=== PATIENT | male | born 1960 | race Caucasian/White ===

== ENCOUNTER → 2016-11-09 | Outpatient (CLI) | payer MEDICARE | LOC: MW.LAB 10:53 | PROVIDERS: ATTEND Nurse Practitioner Family | DX: R73.01 Impaired fasting glucose (principal) | CPT/HCPCS: 36415; 83036 ==

== ENCOUNTER → 2016-11-21 | Outpatient (CLI) | payer MEDICARE ==
--- NOTE | 2016-11-23 12:02 | CR ---
EXAM DATE: 11/21/16 PATIENT'S AGE: 56 Patient: KATHY AMADOR Facility: [place], [place] Site . Site : [id number] Study: XRay Pelvis Right [id number] 3:34:32 PM Ordering Physician: Jacki Aranda Final Report: HISTORY: Right hip pain. Findings: AP pelvis demonstrates post surgical changes of the L5-S1. Surgical clips overlying the sacrum. The pelvic ring and sacral ala are intact. There is mild acetabular spurring within both hips. No subchondral abnormality, fracture or dislocation seen. Impression: Mild degenerative changes of the hips. Dictated by Effie Pascual MD @ Nov 23 2016 12:30AM (Electronic Signature) Report Signed by Proxy and Original Signed Document filed in the Medical Record. MTDD
== END ==
LOC: MW.CHORTHO 07:47
PROVIDERS: ATTEND Orthopaedic Surgery
DX: M25.551 Pain in right hip (principal); M25.851 Other specified joint disorders, right hip; M16.11 Unilateral primary osteoarthritis, right hip
CPT/HCPCS: 20610; 72170; 72170-26; 99203; J1040

== ENCOUNTER → 2016-12-06 | Outpatient (CLI) | payer MEDICARE ==
[~2016-12-06] MED LIST: Gadobenate Dimeglumine 529 MG/ML 20 ML SDV IV ONE
--- NOTE | 2016-12-07 09:35 | MR ---
EXAMINATION: MRI of thoracic spine with and without contrast HISTORY: Paraparesis COMPARISON: MRI lumbar spine dated 03/31/2016 TECHNIQUE: Multiplanar and multisequence images obtained through the thoracic spine before and follo wing the administration of 12 mL of MultiHance. FINDINGS: The thoracic spinal alignment is normal. The vertebral body heights and disc spaces appear well-maintained. There is no abnormal bone marrow signal or enhancement. The abnormal spinal cord s ignal. There is no significant disc bulge, spinal canal stenosis, or neural foraminal stenosis iden tified. The paravertebral soft tissues appear normal. IMPRESSION: Unremarkable MRI of thoracic spine.
--- NOTE | 2016-12-07 11:12 | MR ---
EXAMINATION: MRI of the brain with and without contrast. TECHNIQUE: Multiplanar and multisequence images obtained of the brain before and following the admin istration of 12 mL of Gadavist. HISTORY: Paraparesis. FINDINGS: Cerebral hemispheres and the deep nuclei are without hemorrhage, mass, edema, gliosis, enhancement o r atrophy. Tiny subcortical and periventricular white matter FLAIR signal intensities are noted, no nspecific. No extraaxial collections or hemorrhage. Ventricular system is of normal size and configuration without hydrocephalus. No evidence for globe flattening, small ventricles or partially empty sella to suggest pseudotumor cerebri. Brainstem and cerebellum are without hemorrhage, mass, edema, gliosis, enhancement or atrophy. The carotid basilar artery flow voids are intact. The otomastoid airspaces are clear. No internal dennis tory canal or cerebellopontine angle masses or enhancement. Moderate mucosal thickening within the maxillary sinuses and ethmoid air cells. The globes, optic n erves, orbital apices, optic chiasm, optic tracts, and visual cortices are unremarkable. The pituit jennifer and sella turcica are unremarkable. No meningeal enhancement. The craniocervical junction is u nremarkable. No siderosis. The calvarium is intact. IMPRESSION: 1. No acute intracranial findings. 2. Small scattered periventricular and subcortical FLAIR signal abnormalities, nonspecific, however likely represent small vessel ischemic changes. 3. Moderate paranasal sinus disease.
== END ==
LOC: MW.MRI 14:00
PROVIDERS: ATTEND Psychiatry & Neurology Neurology
DX: G82.20 Paraplegia, unspecified (principal); J34.9 Unspecified disorder of nose and nasal sinuses
CPT/HCPCS: 70553; 70553-26; 72157; 72157-26; A9577

== ENCOUNTER 2017-04-16 17:56 | Emergency (ER) | payer MEDICARE ==
[2017-04-16 18:03] VITALS: BP 102/58
[2017-04-16] MEDS ORDERED: diphenhydrAMINE 50 MG Cap PO ONE (18:05)
--- NOTE | 2017-04-16 18:06 | EDM.PDOC ---
ED HPI GENERAL MEDICAL PROBLEM - General Chief Complaint: Allergic Reaction Stated Complaint: PT HAS ALLERGIC REACTION TO MEDICATION Time Seen by Provider: 04/16/17 18:02 - History of Present Illness INITIAL COMMENTS - FREE TEXT/NARRATIVE: HISTORY AND PHYSICAL: History of present illness: Patient 36-year-old white male presents with a concern possible adverse drug reaction related to Bactrim he denies shortness of breath he states he feels like his lips are swollen although this is not apparent on upon arrival he denies any other concern he was put on this for prostate infection. Review of systems: As per history of present illness and below otherwise all systems reviewed and negative. Past medical history: As per history of present illness and as reviewed below otherwise noncontributory. Surgical history: As per history of present illness and as reviewed below otherwise noncontributory. Social history: No reported history of drug or alcohol abuse. Family history: As per history of present illness and as reviewed below otherwise noncontributory. Physical exam: HEENT: Atraumatic, normocephalic, pupils reactive, negative for conjunctival pallor or scleral icterus, mucous membranes moist, throat clear, neck supple, nontender, trachea midline. Lungs: Clear to auscultation, breath sounds equal bilaterally, chest nontender. Heart: S1S2, regular, negative for clicks, rubs, or JVD. Abdomen: Soft, nondistended, nontender. Negative for masses or hepatosplenomegaly. Negative for costovertebral tenderness. Pelvis: Stable nontender. Genitourinary: Deferred. Rectal: Deferred. Extremities: Atraumatic, negative for cords or calf pain. Neurovascular unremarkable. Neuro: Awake, alert, oriented. Cranial nerves II through XII unremarkable. Cerebellum unremarkable. Motor and sensory unremarkable throughout. Exam nonfocal. Diagnostics: None Therapeutics: None Impression: #1 history of prostatitis #2 possible adverse drug reaction Definitive disposition and diagnosis as appropriate pending reevaluation and review of above. Lower Abdominal Pain Score (Numeric/FACES): 8 - Related Data Allergies Allergy/AdvReac Type Severity Reaction Status Date / Time celecoxib [From Celebrex] Allergy Difficulty Verified 04/16/17 17:59 Breathing midazolam HCl [From Versed] Allergy Difficulty Verified 04/16/17 17:59 Breathing NSAIDS (Non-Steroidal Allergy Difficulty Verified 04/16/17 17:59 Anti-Inflamma Breathing Penicillins Allergy Rash Verified 04/16/17 17:59 Home Meds: Home Meds Acetaminophen/HYDROcodone [Lortab 500-10 MG] 1 - 2 tab PO Q6H PRN 11/23/13 [ History] Metoprolol Succinate [Toprol XL 100mg] 100 mg PO DAILY 11/23/13 [History] Morphine [AVINza] 60 mg PO 11/23/13 [History] atorvaSTATin [Lipitor] 40 mg PO BEDTIME 11/23/13 [History] Aspirin [Ecotrin] 325 mg PO DAILY 12/16/13 [History] Clopidogrel [Plavix] 75 mg PO 12/16/13 [History] Lisinopril [Zestril] 10 mg PO DAILY 12/16/13 [History] Morphine Sulfate [Morphine Sulfate Cr] 60 mg PO BID 12/16/13 [History] Nitroglycerin [Nitrostat] 0.4 mg SL PRN 12/16/13 [History] Social & Family History - Tobacco Use Years of Tobacco use: 35 - Recreational Drug Use Recreational Drug Use: No ED ROS ALLERGIC REACTION - Review of Systems Review Of Systems: ROS reveals no pertinent complaints other than HPI. ED EXAM GENERAL NO PERIP PULSE - Physical Exam Exam: See Below (See dictation) Course - Vital Signs Last Recorded V/S: Last Vital Signs Temp 36.6 C 04/16/17 18:00 Pulse 100 04/16/17 18:00 Resp 16 04/16/17 18:00 BP 102/58 L 04/16/17 18:00 Pulse Ox 99 04/16/17 18:00 Departure - Departure Time of Disposition: 18:05 Disposition: Home, Self-Care 01 Condition: Good Clinical Impression: Adverse drug reaction, History of prostatitis - Discharge Information Referrals: PCP,None [Primary Care Provider] - Additional Instructions: The following information is given to patients seen in the emergency department who are being discharged to home. This information is to outline your options for follow-up care. We provide all patients seen in our emergency department with a follow-up referral. The need for follow-up, as well as the timing and circumstances, are variable depending upon the specifics of your emergency department visit. If you don't have a primary care physician on staff, we will provide you with a referral. We always advise you to contact your personal physician following an emergency department visit to inform them of the circumstance of the visit and for follow-up with them and/or the need for any referrals to a consulting specialist. The emergency department will also refer you to a specialist when appropriate. This referral assures that you have the opportunity for followup care with a specialist. All of these measure are taken in an effort to provide you with optimal care, which includes your followup. Under all circumstances we always encourage you to contact your private physician who remains a resource for coordinating your care. When calling for followup care, please make the office aware that this follow-up is from your recent emergency room visit. If for any reason you are refused follow-up, please contact the [facility] emergency department at and asked to speak to the emergency department charge nurse. Stop Bactrim and Cipro Medrol Benadryl as prescribed follow-up primary medical doctor 1-2 days return as needed as discussed
== END 2017-04-16 18:15 | disposition home or self-care (01) ==
LOC: MW.ED 17:56
DX: R10.30 Lower abdominal pain, unspecified (principal); T37.0X5A Adverse effect of sulfonamides, initial encounter; Z88.8 Allergy status to other drugs, medicaments and biological substances; Z79.82 Long term (current) use of aspirin; Z79.899 Other long term (current) drug therapy; Z88.0 Allergy status to penicillin
CPT/HCPCS: 99283; A9270; 99282

== ENCOUNTER 2019-04-09 08:42 | Emergency (ER) | payer MEDICARE ==
--- NOTE | 2019-04-09 09:40 | EDM.PDOC ---
ED HPI GENERAL MEDICAL PROBLEM - General Chief Complaint: Headache Stated Complaint: HEADACHE Time Seen by Provider: 04/09/19 09:31 Source of Information: Reports: Patient History Limitations: Reports: No Limitations - History of Present Illness INITIAL COMMENTS - FREE TEXT/NARRATIVE: History of present illness: []Patient started having headaches just underneath the skin over his left parietal area 10 days ago has had 4 episodes. He states they last 1-3 hours and usually occur at night after taking his Plavix. He did start taking magnesium 10 days ago when they began however he has been off the magnesium for a week and continues to have the headaches. Patient denies any visual changes, numbness , tingling, ringing in his ears, nausea or vomiting. She states his pain is currently gone now but he is concerned because he is a fentanyl patch for chronic sciatica from a pain management clinic that has been decreased from 100 g to 25 g. Review of systems: As per history of present illness and below otherwise all systems reviewed and negative. Past medical history: As per history of present illness and as reviewed below otherwise noncontributory. Surgical history: As per history of present illness and as reviewed below otherwise noncontributory. Social history: No reported history of drug or alcohol abuse. Family history: As per history of present illness and as reviewed below otherwise noncontributory. Physical exam: General: Well developed, well nourished in NAD HEENT: Atraumatic, normocephalic, pupils reactive, negative for conjunctival pallor or scleral icterus, mucous membranes moist, throat clear, neck supple, nontender, trachea midline. Lungs: Clear to auscultation, breath sounds equal bilaterally, chest nontender. Heart: S1S2, regular, negative for clicks, rubs, or JVD. Abdomen: NABS, Soft, nondistended, nontender. Negative for masses or hepatosplenomegaly. Negative for costovertebral tenderness. Pelvis: Stable nontender. Genitourinary: Deferred. Rectal: Deferred. Extremities: Atraumatic, negative for cords or calf pain. Neurovascular unremarkable. Neuro: Awake, alert, oriented. Cranial nerves II through XII unremarkable. Cerebellum unremarkable. Motor and sensory unremarkable throughout. Exam nonfocal. Skin:warm and dry Diagnostics: CT head negative Therapeutics: None ED Course: Stable Impression: reCurrent headaches Prescriptions: None Plan: Take meds as directed, follow up with your primary care physician, return to ER if symptoms worsen or change. Definitive disposition and diagnosis as appropriate pending reevaluation and review of above. headache Pain Score (Numeric/FACES): 5 - Related Data Allergies Allergy/AdvReac Type Severity Reaction Status Date / Time celecoxib [From Celebrex] Allergy Difficulty Verified 04/09/19 08:57 Breathing midazolam HCl [From Versed] Allergy Difficulty Verified 04/09/19 08:57 Breathing NSAIDS (Non-Steroidal Allergy Difficulty Verified 04/09/19 08:57 Anti-Inflamma Breathing Penicillins Allergy Rash Verified 04/09/19 08:57 Home Meds: Home Meds Clopidogrel [Plavix] 75 mg PO DAILY 12/16/13 [History] Nitroglycerin [Nitrostat] 0.4 mg SL ASDIRECTED PRN 12/16/13 [History] Hydrocodone/Acetaminophen [Hydrocodon-Acetaminophn 10-325] 2 tab PO TID [History] fentaNYL [Fentanyl] 1 patch TOP ASDIRECTED 04/09/19 [History] traMADol [Ultram] 25 mg PO BID 04/09/19 [History] Past Medical History HEENT History: Reports: None Cardiovascular History: Reports: CAD, [place] Respiratory History: Reports: None Gastrointestinal History: Reports: None Genitourinary History: Reports: None Musculoskeletal History: Reports: None Neurological History: Reports: None Psychiatric History: Reports: None Endocrine/Metabolic History: Reports: None Hematologic History: Reports: None Immunologic History: Reports: None Oncologic (Cancer) History: Reports: None Dermatologic History: Reports: None - Past Surgical History HEENT Surgical History: Reports: None Cardiovascular Surgical History: Reports: Coronary Artery Bypass, Coronary Artery Stent Respiratory Surgical History: Reports: None GI Surgical History: Reports: Hernia, Abdominal, Hernia Repair/Other Male Surgical History: Reports: None Endocrine Surgical History: Reports: None Neurological Surgical History: Reports: None Musculoskeletal Surgical History: Reports: Other (See Below) Other Musculoskeletal Surgeries/Procedures:: back surgery Oncologic Surgical History: Reports: None Dermatological Surgical History: Reports: None Social & Family History - Family History Family Medical History: Noncontributory - Tobacco Use Smoking Status *Q: Current Every Day Smoker Years of Tobacco use: 35 Packs/Tins Daily: 0.5 - Caffeine Use Caffeine Use: Reports: Coffee, Soda - Recreational Drug Use Recreational Drug Use: No ED ROS GENERAL - Review of Systems Review Of Systems: See Below - Physical Exam Exam: See Below Course - Vital Signs Last Recorded V/S: Last Vital Signs Temp 97.3 F 04/09/19 08:55 Pulse 74 04/09/19 08:55 Resp 18 04/09/19 08:55 BP 137/63 04/09/19 08:55 Pulse Ox 97 04/09/19 08:55 Departure - Departure Time of Disposition: 10:48 Disposition: Home, Self-Care 01 Condition: Good Clinical Impression: Recurrent headache - Discharge Information *PRESCRIPTION DRUG MONITORING PROGRAM REVIEWED*: No *COPY OF PRESCRIPTION DRUG MONITORING REPORT IN PATIENT DEON: No Referrals: PCP,Unknown [Primary Care Provider] - Forms: ED Department Discharge Additional Instructions: The following information is given to patients seen in the emergency department who are being discharged to home. This information is to outline your options for follow-up care. We provide all patients seen in our emergency department with a follow-up referral. The need for follow-up, as well as the timing and circumstances, are variable depending upon the specifics of your emergency department visit. If you don't have a primary care physician on staff, we will provide you with a referral. We always advise you to contact your personal physician following an emergency department visit to inform them of the circumstance of the visit and for follow-up with them and/or the need for any referrals to a consulting specialist. The emergency department will also refer you to a specialist when appropriate. This referral assures that you have the opportunity for follow-up care with a specialist. All of these measure are taken in an effort to provide you with optimal care, which includes your follow-up. Under all circumstances we always encourage you to contact your private physician who remains a resource for coordinating your care. When calling for follow-up care, please make the office aware that this follow-up is from your recent emergency room visit. If for any reason you are refused follow-up, please contact the [facility] Emergency Department at and asked to speak to the emergency department charge nurse. , follow up with your primary care physician, return to ER if symptoms worsen or change. [facility] [address] [place] [id number]
--- NOTE | 2019-04-09 10:46 | CT ---
INDICATION: Starting get headaches at night after taking Plavix. TECHNIQUE: Scanning of the head was performed without IV contrast material. Coronal and sagittal reconstructions were obtained. COMPARISON: None. FINDINGS: No acute hemorrhage, parenchymal attenuation abnormality, or mass effect is demonstrated. Differentiation between the cedillo matter and white matter is preserved. The ventricles and other subarachnoid spaces are within normal limits. No calvarial abnormality is evident. Membrane thickening along the floor of the maxillary sinuses and possible fluid in the sinus is demonstrated. Membrane thickening along the floor left maxillary sinus is noted. Membrane thickening and possible fluid is present in multiple ethmoid air cells bilaterally. The frontal sinuses are aplastic and the sphenoid sinuses are markedly hypoplastic. Mild membrane thickening in both sphenoid sinuses is noted. The mastoids are clear. IMPRESSION: 1. Negative noncontrast head CT. 2. Paranasal sinus disease, as above. Please note that all CT scans at this facility use dose modulation, iterative reconstruction, and/or weight-based dosing when appropriate to reduce radiation dose to as low as reasonably achievable. Dictated by Brandon Corey MD @ Apr 09 2019 10:34AM Signed by Dr. Brandon Corey @ Apr 09 2019 10:44AM
[2019-04-09 10:54] VITALS: BP 92/47; PULSE 64
== END 2019-04-09 10:55 | disposition home or self-care (01) ==
LOC: MW.ED 08:42
DX: R51 Headache (principal); I25.10 Atherosclerotic heart disease of native coronary artery without angina pectoris; I25.2 Old myocardial infarction; F17.210 Nicotine dependence, cigarettes, uncomplicated; Z79.02 Long term (current) use of antithrombotics/antiplatelets; Z79.899 Other long term (current) drug therapy; Z88.0 Allergy status to penicillin; Z88.8 Allergy status to other drugs, medicaments and biological substances
CPT/HCPCS: 70450; 70450-26; 93005; 99282; 99283

== ENCOUNTER 2021-08-16 08:48 | Emergency (ER) | payer MEDICARE ==
[2021-08-16 08:53] VITALS: PULSE 56
[2021-08-16] MEDS ORDERED: Sodium Chloride 0.9% 1,000 ML IV ONE (08:53)
[2021-08-16] MEDS ORDERED: Ondansetron 4 MG/2 ML SDV IVPUSH ONE (08:53)
[2021-08-16] MEDS ORDERED: Sodium Chloride 0.9% 2.5 ML Syringe FLUSH PRN (08:53)
[2021-08-16] MEDS ORDERED: Sodium Chloride 0.9% 10 ML Syringe FLUSH PRN (08:53)
[2021-08-16] MEDS ORDERED: fentaNYL 50 MCG/ML SDV IVPUSH ONE (09:19)
[2021-08-16] MEDS ORDERED: Pantoprazole 40 MG in Sodium Chloride 0.9% 10 ML IVPUSH SCH (09:30)
[2021-08-16 09:49] LABS: BLOOD UREA NITROGEN,BUN 27 mg/dL (7.0-18.0); CARBON DIOXIDE,CO2 26.4 mmol/L (21.0-32.0); CHLORIDE,CL 105 mmol/L (98-107); GLUCOSE RANDOM 134 mg/dL (74-106); LIPASE 67 U/L (73-393); POTASSIUM,K 4.1 mmol/L (3.5-5.1); SODIUM,NA 141 mmol/L (136-148)
[2021-08-16] MEDS ORDERED: Iopamidol 755 MG/ML 500 ML Multipack Bottle IVPUSH STA (10:26)
[2021-08-16 11:04] VITALS: BP 109/52
== END 2021-08-16 11:43 | disposition home or self-care (01) ==
LOC: MW.ED 08:48
DX: R10.13 Epigastric pain (principal); I25.10 Atherosclerotic heart disease of native coronary artery without angina pectoris; I25.2 Old myocardial infarction; Z72.0 Tobacco use; Z88.1 Allergy status to other antibiotic agents; Z88.4 Allergy status to anesthetic agent; Z88.6 Allergy status to analgesic agent; Z88.0 Allergy status to penicillin; Z79.02 Long term (current) use of antithrombotics/antiplatelets; Z79.899 Other long term (current) drug therapy
CPT/HCPCS: 36415; 71045; 74177; 80053; 81001; 83605; 83690; 84484; 85025; 93005; 96374; 96375; 99284; C9113; J2405; J3010; J7030

== ENCOUNTER 2022-09-02 11:32 | Day surgery (SDC) | payer MEDICARE ==
[~2022-09-02 11:32] MED LIST changes: -Gadobenate Dimeglumine 529 MG/ML 20 ML SDV IV ONE; +Lactated Ringers 1,000 ML IV SCH; +Midazolam 1 MG/ML 2 ML SDV ONE; +Propofol 200 MG/20 ML SDV ONE
[2022-09-02] MEDS ORDERED: Propofol 200 MG/20 ML SDV ONE (13:19)
[2022-09-02] MEDS ORDERED: Lactated Ringers 1,000 ML IV SCH (13:45)
[2022-09-02 14:04] VITALS: BP 112/59; PULSE 58
== END 2022-09-02 14:00 | disposition home or self-care (01) ==
LOC: MW.SDS 11:32
PROVIDERS: ATTEND Surgery
DX: K29.00 Acute gastritis without bleeding (principal); K29.50 Unspecified chronic gastritis without bleeding; I25.10 Atherosclerotic heart disease of native coronary artery without angina pectoris; F17.210 Nicotine dependence, cigarettes, uncomplicated; E78.5 Hyperlipidemia, unspecified; I25.2 Old myocardial infarction; Z88.4 Allergy status to anesthetic agent; Z88.6 Allergy status to analgesic agent; Z79.899 Other long term (current) drug therapy; Z98.890 Other specified postprocedural states; Z95.1 Presence of aortocoronary bypass graft; Z98.1 Arthrodesis status
CPT/HCPCS: 43239; J2704; J7120; J2250